=== PATIENT | male | born 1985 | race Caucasian/White ===

== ENCOUNTER 2018-07-14 16:12 | Emergency (ER) | payer OTHER ==
[2018-07-14] MEDS ORDERED: ONDANSETRON 4 MG/2 ML VIAL IVP STA (16:34)
[2018-07-14] MEDS ORDERED: KETOROLAC 30 MG/ML VIAL IVP STA (16:34)
[2018-07-14] MEDS ORDERED: HYDROmorphone 1 MG/ML CARPUJECT IVP STA (16:34)
[2018-07-14 16:51] LABS: BASOPHILS # (AUTO) 0.1 10^3/uL (0.0-0.1); EOSINOPHILS # (AUTO) 0.2 10^3/uL (0.0-0.7); EOSINOPHILS % (AUTO) 2.5 %; HGB - HEMOGLOBIN 14.5 g/dL (14.0-18.0); LYMPHOCYTES # (AUTO) 3.7 10^3/uL (1.5-3.5); LYMPHOCYTES % (AUTO) 37.3 %; MEAN CORPUSCULAR HEMOGLOBIN 29.6 pg (27.0-31.0); MEAN CORPUSCULAR HGB CONC 33.7 g/dL (32.0-36.0); MEAN CORPUSCULAR VOLUME 87.7 fL (80.0-94.0); MEAN PLATELET VOLUME 7.7 fL (7.4-11.4); MONOCYTES # (AUTO) 0.8 10^3/uL (0.0-1.0); NEUTROPHILS % (AUTO) 51.2 %; PLT - PLATELET COUNT 336 10^3/uL (130-450); RED BLOOD COUNT 4.91 10^6/uL (4.70-6.10); RED CELL DISTRIBUTION WIDTH 13.7 % (12.0-15.0); WHITE BLOOD COUNT 9.8 x10^3/uL (4.8-10.8)
--- NOTE | 2018-07-14 16:51 | ED Physician Documentation ---
PD HPI ABD PAIN - Stated complaint Stated Complaint: STOMACH PX - Chief complaint Chief Complaint: Abd Pain - History obtained from History obtained from: Patient - History of Present Illness Timing - onset: Other (Sudden onset right upper quadrant to right flank pain starting about 2 hours ago after a large lunch. He is never had anything like this before. No urinary complaints or trouble with bowel movements. No history of abdominal surgeries.) Review of Systems Ten Systems: 10 systems reviewed and negative Constitutional: denies: Fever, Chills Cardiac: denies: Chest pain / pressure, Palpitations Respiratory: denies: Dyspnea, Cough PD PAST MEDICAL HISTORY - Present Medications Home Medications: Ambulatory Orders Medication Instructions Recorded Confirmed Ibuprofen [Motrin] 800 mg PO Q8H PRN #30 tablet 07/14/18 Ondansetron Odt [Zofran] 4 mg TL Q6H PRN #10 tablet 07/14/18 Oxycodone HCl/Acetaminophen 1 - 2 each PO Q6H PRN #14 tablet 07/14/18 [Percocet 5-325 mg Tablet] Tamsulosin [Flomax] 0.4 mg PO DAILY #14 capsule 07/14/18 - Allergies Allergies/Adverse Reactions: Allergies Allergy/AdvReac Type Severity Reaction Status Date / Time No Known Drug Allergies Allergy Verified 07/14/18 16:30 PD ED PE NORMAL - Vitals Vital signs reviewed: Yes - General General: Alert and oriented X 3, Other (He is restless and appears uncomfortable) - HEENT HEENT: PERRL, EOMI - Neck Neck: Supple, no meningeal sign, No bony TTP - Cardiac Cardiac: RRR, No murmur - Respiratory Respiratory: No respiratory distress, Clear bilaterally - Abdomen Abdomen: Normal bowel sounds, Soft, Non tender - Back Back: No CVA TTP, No spinal TTP - Derm Derm: Normal color, Warm and dry - Extremities Extremities: No edema, No calf tenderness / cord - Neuro Neuro: Alert and oriented X 3, Normal speech Results - Vitals Vitals: Vital Signs - 24 hr 07/14/18 16:28 Temperature 37.4 C Heart Rate 103 H Respiratory 22 Rate Blood Pressure 128/98 H O2 Saturation 100 Oxygen O2 Source Room air - Labs Labs: Laboratory Tests 07/14/18 07/14/18 07/14/18 16:40 16:45 16:45 WBC 9.8 RBC 4.91 Hgb 14.5 Hct 43.1 MCV 87.7 MCH 29.6 MCHC 33.7 RDW 13.7 Plt Count 336 MPV 7.7 Neut # (Auto) 5.0 Lymph # (Auto) 3.7 H [place] # (Auto) 0.8 Eos # (Auto) 0.2 Baso # (Auto) 0.1 Absolute Nucleated RBC 0.00 Nucleated RBC % 0.0 Sodium 142 Potassium 4.1 Chloride 104 Carbon Dioxide 27 Anion Gap 11.0 BUN 17 Creatinine 1.5 H Estimated GFR (MDRD) 54 L Glucose 125 H Calcium 9.6 Total Bilirubin 1.1 H AST 23 ALT 30 Alkaline Phosphatase 78 Total Protein 7.5 Albumin 4.5 Globulin 3.0 Albumin/Globulin Ratio 1.5 Lipase 30 Urine Color YELLOW Urine Clarity CLEAR Urine pH 6.0 Ur Specific [place] 1.025 Urine Protein TRACE Urine Glucose (UA) NEGATIVE Urine Ketones NEGATIVE Urine Occult Blood MODERATE H Urine Nitrite NEGATIVE Urine Bilirubin NEGATIVE Urine Urobilinogen 0.2 (NORMAL) Ur Leukocyte Esterase NEGATIVE Urine RBC 6-10 H Urine WBC 0-3 Ur Squamous Epith Cells RARE Squamous Urine Bacteria None Seen Urine Mucus Few Strands Ur Microscopic Review INDICATED Urine Culture Comments NOT INDICATED - Rads (name of study) CT KUB Radiology: EMP read contemporaneously (6 x 5 mm distal right ureteral stone with moderate right hydronephrosis, ectopic left pelvic kidney with small nonobstructing left kidney stone.) PD MEDICAL DECISION MAKING - ED course ED course: 33-year-old gentleman with what sounds like renal colic, less likely biliary colic. Pain-free after medications here. Departure - Departure Disposition: 01 Home, Self Care Clinical Impression: Renal colic Condition: Good Record reviewed to determine appropriate education?: Yes Instructions: ED Stone Renal W Colic Prescriptions: Ibuprofen [Motrin] 800 mg PO Q8H PRN #30 tablet PRN Reason: PAIN &/OR FEVER Ondansetron Odt [Zofran] 4 mg TL Q6H PRN #10 tablet PRN Reason: Nausea / Vomiting Oxycodone HCl/Acetaminophen [Percocet 5-325 mg Tablet] 1 - 2 each PO Q6H PRN #14 tablet PRN Reason: pain Tamsulosin [Flomax] 0.4 mg PO DAILY #14 capsule Comments: Follow-up with your flight surgeon tomorrow with copies of the CAT scan on CD. Likely if you are not pain-free within a few days here she will refer you to a urologist for further evaluation and treatment.
[2018-07-14 16:53] LABS: BILIRUBIN,URINE NEGATIVE (NEGATIVE); GLUCOSE, URINE (UA) NEGATIVE (NEGATIVE); KETONES,URINE (UA) NEGATIVE (NEGATIVE); LEUKOCYTE ESTERASE, URINE NEGATIVE (NEGATIVE); NITRITE,URINE NEGATIVE (NEGATIVE); OCCULT BLOOD,URINE MODERATE (NEGATIVE); PROTEIN,URINE TRACE mg/dL (NEGATIVE); UROBILINOGEN,URINE 0.2 (NORMAL) E.U./dL (NORMAL)
[2018-07-14 17:02] LABS: CLARITY,URINE CLEAR (CLEAR)
[2018-07-14 17:05] LABS: BACTERIA,URINE None Seen /HPF (None Seen); SQUAMOUS EPITHELIAL CELL,UR RARE Squamous (<= Few)
[2018-07-14 17:05] LABS: ALBUMIN 4.5 g/dL (3.2-5.5); ALBUMIN/GLOBULIN RATIO 1.5 (1.0-2.2); BILIRUBIN,TOTAL 1.1 mg/dL (0.2-1.0); CALCIUM 9.6 mg/dL (8.5-10.3); CREATININE 1.5 mg/dL (0.6-1.2); TOTAL PROTEIN 7.5 g/dL (6.7-8.2)
[2018-07-14 17:06] LABS: MUCUS,URINE Few Strands
[2018-07-14] MEDS ORDERED: TAMSULOSIN 0.4 MG CAPSULE PO STA (17:33)
--- NOTE | 2018-07-14 17:53 | CT Report ---
Reason: R abd pain Procedure Date: 07/14/2018 Accession Number: [id number] / [id number] Procedure: CT - Abdomen/Pelvis WO CPT Code: FULL RESULT: EXAM: CT ABDOMEN AND PELVIS (CT KUB) EXAM DATE: 07/14/2018 05:22 PM. CLINICAL HISTORY: Right sided abdomen pain COMPARISONS: None. TECHNIQUE: Routine axial helical CT imaging was performed through the abdomen and pelvis without IV contrast. Reconstructions: Coronal and sagittal. In accordance with CT protocol optimization, one or more of the following dose reduction techniques were utilized for this exam: automated exposure control, adjustment of mA and/or KV based on patient size, or use of iterative reconstructive technique. FINDINGS: Lung Bases: Unremarkable. Right Kidney/Ureter: There is a 6 x 5 mm distal right ureter stone. There is mild to moderate right hydronephrosis. No right kidney stone. 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 There is a 3 mm nonobstructing left kidney stone. No left hydronephrosis. Other Solid Organs: Noncontrast images of the solid organs are grossly unremarkable. Gallbladder/Bile Ducts: Unremarkable. Peritoneal Cavity: No dilated bowel. No abnormal fluid or gas collection. The appendix appears normal. Pelvic Organs: Urinary bladder is empty. Vasculature: Unremarkable. Other: None. IMPRESSION: 1. Obstructing 6 x 5 mm distal right ureter stone with mild to moderate right hydronephrosis. 2. Ectopic left pelvic kidney. Small nonobstructing left kidney stone. RADIA
[2018-07-14 18:17] VITALS: BP 131/84
== END 2018-07-14 18:17 | disposition home or self-care (01) ==
LOC: ED 16:12
DX: N13.2 Hydronephrosis with renal and ureteral calculous obstruction (principal)
CPT/HCPCS: 36415; 74176; 80053; 81001; 83690; 85025; 96374; 99283; A9270; J1170; 81003; 87086

== ENCOUNTER 2018-12-10 13:47 | Outpatient (CLI) | payer OTHER ==
--- NOTE | 2018-12-11 08:38 | MRI Report ---
Reason: PAIN IN RIGHT KNEE Procedure Date: 12/10/2018 Accession Number: [id number] / [id number] Procedure: MRI - Knee RT W/O CPT Code: FULL RESULT: EXAM: RIGHT KNEE MRI WITHOUT CONTRAST EXAM DATE: 12/10/2018 04:28 PM. CLINICAL HISTORY: PAIN IN RIGHT KNEE. COMPARISON: None. TECHNIQUE: Multiplanar, multisequence T1-weighted and fluid-sensitive sequences of the knee without contrast. Other: None. FINDINGS: Ligaments: The anterior cruciate, posterior cruciate, medial collateral, and lateral collateral ligaments are normal. Patellofemoral compartment: Patellofemoral cartilage is normal. No patellofemoral osteoarthritis. Patellofemoral alignment is anatomic. The distal quadriceps and patellar tendons are normal. The medial and lateral patellofemoral retinacula are normal. Medial compartment: The medial meniscus is normal. Medial compartment cartilage is normal. No medial compartment osteoarthritis. Lateral compartment: The lateral meniscus is normal. Lateral compartment cartilage is normal. No lateral compartment osteoarthritis. Soft tissues: There is a tiny knee effusion. No popliteal cyst. No articular body. Subtle edema is present in the soft tissues interposed between the iliotibial band and lateral margin of the lateral femoral condyle, raising the question of iliotibial band friction syndrome. IMPRESSION: 1. Subtle edema between the iliotibial band and lateral margin of the lateral femoral condyle raising the question of iliotibial band friction syndrome. 2. Tiny knee effusion. 3. Otherwise, normal knee. RADIA
== END 2018-12-10 13:48 | disposition home or self-care (01) ==
LOC: DI 13:47
DX: M25.561 Pain in right knee (principal); M25.461 Effusion, right knee; R60.0 Localized edema